=== PATIENT | male | born 1980 | race Caucasian/White ===

== ENCOUNTER 2023-05-03 11:40 | Outpatient (CLI) | payer BC, SELFPAY ==
[2023-05-03 14:39] LABS: Strep A DNA Probe* NOT DETECTED (Not Detectd)
== END 2023-05-03 11:41 | disposition home or self-care (01) ==
LOC: KYNREF 11:40
PROVIDERS: PCP Nurse Practitioner Family; Visit Provider Nurse Practitioner Family
DX: J02.9 Acute pharyngitis, unspecified (principal)
CPT/HCPCS: 87651